=== PATIENT | female | born 1995 | race Caucasian/White ===

== ENCOUNTER 2017-02-25 08:41 | Day surgery (SDC) | payer OTHER ==
[~2017-02-25] VITALS: Ht 167.6 cm; Wt 55.0 kg
[~2017-02-25 08:41] MED LIST: CLIN300C8 PO; NORG1TAB6 PO; OXYMETAZOLINE NASAL SPRAY 0.05%, 15ML ONE
[2017-02-25 09:07] VITALS: BP 128/84
[2017-02-25] MEDS ORDERED: LACTATED RINGERS 1,000 ML IV SCH (09:11)
[2017-02-25] MEDS ORDERED: LIDOCAINE 1%, 2ML ONE (09:13)
[2017-02-25 09:19] LABS: HCG UR LOT HCG706132
[2017-02-25 09:21] LABS: HCG UR OBC PASS
[2017-02-25] MEDS ORDERED: LIDOCAINE 1%, 2ML SQ PRN (09:30)
[2017-02-25] MEDS ORDERED: FENTANYL PF 100 MCG/2ML ONE ×3 (10:28→11:23)
[2017-02-25] MEDS ORDERED: MIDAZOLAM 1 MG/ML, 2ML ONE (10:28)
[2017-02-25] MEDS ORDERED: ONDANSETRON 2MG/ML, 2ML ONE (10:40)
[2017-02-25] MEDS ORDERED: SUCCINYLCHOLINE 20 MG/ML, 10ML ONE (10:40)
[2017-02-25] MEDS ORDERED: PROPOFOL 10 MG/ML, 20ML ONE (10:40)
[2017-02-25] MEDS ORDERED: DEXAMETHASONE 4 MG/ML, 1ML ONE ×2 (10:40)
[2017-02-25] MEDS ORDERED: ACETAMINOPHEN 325 MG TABLET PO PRN (11:00)
[2017-02-25] MEDS ORDERED: PROMETHAZINE 25 MG/ML, 1ML IV PRN (11:00)
[2017-02-25] MEDS ORDERED: OXYcodone 5 MG/5 ML ORAL.SOL UDC PO PRN (11:00)
[2017-02-25] MEDS ORDERED: OXYcodone 5 MG/5 ML ORAL.SOL UDC ONE (11:23)
[2017-02-25] MEDS: FENTANYL PF 100 MCG/2ML IV PRN ×3 (11:27→11:43)
== END 2017-02-25 13:55 ==
LOC: OUT 08:41
PROVIDERS: ATTEND Otolaryngology
DX: J03.90 Acute tonsillitis, unspecified (principal); Z88.0 Allergy status to penicillin; Z88.8 Allergy status to other drugs, medicaments and biological substances
CPT/HCPCS: 42826; 81025; 88304; J0330; J1100; J2250; J2405; J2704; J3010